=== PATIENT | female | born 1980 | race Caucasian/White ===

== ENCOUNTER 2016-10-10 20:34 | Emergency (ER) | payer MEDICARE, MEDICAID ==
[~2016-10-10] VITALS: Ht 165.1 cm; Wt 65.8 kg
[~2016-10-10 20:34] MED LIST: ALBUTEROL1.25 MG/1 INH; ALLEGRA60 MG PO; CHLORPROMAZINE25 MG PO; CIPRO 500MG TA500 MG PO; CLARITIN10 MG PO; CYANOCOBAL1000 MCG/M IM; CYCLOBENZAPRINE10 MG PO; DEPAKOTE 500MG500 MG PO; DICYCLOMINE20 MG PO; DILAUDID2 MG PO; ESTRADIOL0.5 MG PO; FLUTICASONE 50M16 GM; GABAPENTIN100 M1 PO; IMODIUM2 MG PO; KEFLEX 500MG.500 MG PO; LEVAQUIN500 MG PO; LORATADINE 10MG10 M1 PO; LORTAB 5/500 501 TAB PO; LORTAB 500 MG-71 TAB PO; LYRICA25 M1 PO; NADOLOL 20 MG T20 MG PO; NORCO 325 MG-101 TAB PO; PERCOCET 10 MG1 EACH PO; PERCOCET1 TA1 PO; PRAVASTATIN 20M20 MG PO; PREDNISONE 20MG20 MG PO; PRILOSEC20 MG PO; PROAIR HFA0.09 MG/AC IH; PROMETHAZINE D240 ML PO; PROMETHAZINE HC25 M1 PO; QNASL80 MCG/Act NS; RANITIDINE HCL150 MG PO; SINGULAIR10 MG PO; SYMBICORT1 AE1 IH; TESSALON PERLE100 MG PO; TIZANIDINE4 MG PO; TOPIRAMATE 100100 M1 PO; UROCIT-K 1010 MEQ PO; VERAPAMIL HCL120 M2 PO; ZITHROMAX Z-PA250 M2 PO; ZOFRAN ODT8 MG PO; ZONEGRAN100 MG PO
[2016-10-10] MEDS ORDERED: AMOXICOT500 MG PO (21:15)
[2016-10-10 21:17] VITALS: BP 148/88
--- NOTE | 2016-10-10 21:17 | Urgent Treatment Center Report ---
History of Present Issue Date/Time Seen by Provider 10/10/162110 Visit Reason Pt arrived:Walked Presenting Problem:PT STATES LEFT EAR PAIN FOR PAST WEEK AND A HALF Location if Accident: Onset of symptoms date/time:/ or onset unknown for:MEDICAL HX UNKNOWN Have you (or family members/close friends) recently traveled outside the [place]? N If Yes, where/when: Have you had exposure to infectious disease within the past month? TB? Other? Specify: Source patient Exam Limitations no limitations Comment 36-year-old female presents today for LEFT ear pain. Patient states pain radiates down the neck. Was diagnosed 2 weeks ago with pneumonia. Patient states she also has nasal congestion. ALLERGIES Coded Allergies: No Known Allergies (05/09/16) Home Medications Active Scripts ALBUTEROL SULFATE (Accuneb) 1.25 MG INH QIDP PRN WHEEZING #120 NEB Ref 1 Prov: 05/10/16 Reported Medications Estradiol 0.5 MG PO DAILY TIZANIDINE HCL (Tizanidine) 10 MG PO QID VERAPAMIL HCL (Verapamil ER) 120 MG PO DAILY Beclomethasone Dipropionate (Qnasl) 80 MCG NS BID Pregabalin (Lyrica) 25 MG PO BID Ranitidine Hcl (Ranitidine 150MG) 300 MG PO BID Loratadine (Loratadine 10MG Tablet) 10 MG PO DAILY Montelukast Sodium (Singulair) 10 MG PO QHS PROMETHAZINE HCL (Promethazine 25mg Tab) 25 MG PO Q4HP PRN N/V FLUTICASONE PROPIONATE (Fluticasone 50MCG Nasal [place]) 1 SPRAY NA BID BUDESONIDE/FORMOTEROL FUMARATE (Symbicort 160-4.5 Mcg Inhaler) 2 PUFFS IH BID Albuterol Sulfate (Proair Hfa) 2 PUFFS IH Q6HP PRN ASTHMA VITAMIN B12 (Cyanocobalamin Injection) 1,000 MCG IM MONTHLY Dicyclomine Hcl (Dicyclomine) 20 MG PO TID Pravastatin Sodium (Pravastatin 20MG) 20 MG PO QHS Zonisamide (Zonegran) 300 MG PO BID History Medical History General CAD? No Angina: No OK: No Hypertension? No Hyperlipidemia? Yes CHF? No DVT? No PE? No COPD? No Asthma? Yes Anemia? No GERD? Yes Gastric ulcers? No GI Bleed? No Hernia? No Thyroid Problems? No Hypothyroidism? No CVA? No Seizures? No Diabetes? No Renal Insuffiency? No UTI? Yes Stones? Yes BPH? No GB Disease: Yes Nephritic Syndrome? No Asplenia? No Hepatitis? No Sickle Cell Disease? No Arthritis? Yes Migraines? Yes Cataracts? No Glaucoma? No MRSA? No HIV? No TB? No Anxiety? No Depression? No Cancer? No More? Yes Additional hx: TACHYCARDIA Immunization HX DT/Tetanus > 10 Years Ago Flu 05/10/16 Pneumonia Refuses Surgical Hx Previous Surgery?Y APPENDECTOMY GALLBLADDER Tubal Ligation STENT IN R. 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 Physical Exam Vital Signs Vital Signs Date Time Temp Pulse Resp B/P Pulse O2 O2 Flow FiO2 Ox Delivery Rate 10/10 2041 98.4 114 18 148/88 99 - WBC >12,000 or <4,000 or 10% bands? 2 or more SIRS Criteria Met? B/P:148/88 MAP:108 Creatinine >2.0? UA output<0.5ml/kg/hr for 2 hrs? Platelet count >100,000? Lactate >2.0mmol/1? INR >1.2 or PTT > than 60 sec? Evidence of Organ Dysfunction? Provider documented clinical suspician of infection? Sepsis Criteria Count: 1 Sepsis Risk: General Appearance normal appearance, no apparent distress Eye Exam - bilateral eye normal exam, bilateral eye PERRL, bilateral eye EOMI Ear, Nose, Throat hearing grossly normal, abnormal TM (L) Neck normal inspection, full range of motion Respiratory Status Yes: trachea midline, chest symmetrical, non tender chest. No: respiratory distress. Cardiovascular normal exam, regular rate/rhythm Neurologic alert, normal exam, oriented x 3 Medical Decision Making LABS/Meds/Orders Pt receiving controlled substance in ED? No Departure Departure Time of Disposition 2112 Disposition DC Home or Self Care(routine) Clinical Impression Primary Impression: Otitis media Qualifiers: Otitis media type: unspecified Laterality: left Chronicity: unspecified Qualified Code: H66.92 - Otitis media, unspecified, left ear Condition STABLE Referrals Vani MACEDO,Carlos (Family): 2 Days-Call Office Patient Instructions Ear Infections (Middle Ear) (Alternative Therapy) Additional Instructions Follow-up with PCP on Wednesday return or be seen in the ER with any other concerns Discharge Counseling Counseled pt/family regarding diagnosis, test results, home care, follow up needs Prescriptions Current Visit Scripts Amoxicillin (Amoxicillin 500MG) 500 MG PO BID 10 Days at 2876
== END 2016-10-10 21:19 | disposition home or self-care (01) ==
LOC: UTC 20:34
DX: H66.92 Otitis media, unspecified, left ear (principal)

== ENCOUNTER → 2016-11-11 | Outpatient (CLI) | payer MEDICARE, MEDICAID ==
[~2016-11-11] MED LIST changes: +AMOXICOT500 MG PO
--- NOTE | 2016-11-12 07:35 | RADIOLOGY REPORT PS360 ---
MRI-BRAIN W/O HISTORY: Severe headache increasing in frequency with memory loss MIGRAINE WITHOUT AURA ORDERING PHYSICIAN: JOSE HENRYMATA PATIENT AGE: 36 years COMPARISON: None TECHNIQUE: Standard multiplanar multiecho sequences are performed without contrast. FINDINGS: No midline shift, mass effect, intracranial hemorrhage, hydrocephalus, or acute infarction is evident. There is normal marquez-white matter differentiation. No abnormal white matter signal intensity evident. No intra or extra-axial mass. No evidence of restricted diffusion. No large aneurysms detected. Smaller aneurysms may better be evaluated with MRA if clinically warranted. The cerebellopontine angles, cerebellum, and brainstem are unremarkable. The pituitary and optic chiasm, corpus callosum and hippocampal gyri are unremarkable. The temporal horns are symmetric. No cerebellar tonsillar ectopia. There is a small Thornwaldt cyst at 8 mm. There is a small amount fluid signal intensity in the left mastoid sinus. No paranasal sinus air-fluid level evident. IMPRESSION: 1. Negative MRI of the brain without contrast. 2. Mild left mastoid sinus disease
== END ==
LOC: RAD 14:27
DX: G43.009 Migraine without aura, not intractable, without status migrainosus (principal); G89.29 Other chronic pain; J45.30 Mild persistent asthma, uncomplicated; M54.5 Low back pain; R00.0 Tachycardia, unspecified

== ENCOUNTER → 2017-03-19 | Outpatient (CLI) | payer MEDICARE, MEDICAID ==
[~2017-03-19] MED LIST changes: +AUGMENTIN 875-1 EACH PO; +FLONASE 50 MCG16 GM
[2017-03-19 08:23] LABS: LYMPH # 2.3 K/mm3 (0.7-4.5); LYMPH % 47.1 % (10-50.0)
[2017-03-19 10:53] LABS: BUN 12 mg/dL (7-18); GFR (ESTIMATED) 81 ML/MIN (59-)
== END ==
LOC: LAB 08:05
PROVIDERS: Nurse Practitioner Family
DX: E78.5 Hyperlipidemia, unspecified (principal); Z79.899 Other long term (current) drug therapy

== ENCOUNTER 2017-04-01 18:59 | Emergency (ER) | payer MEDICARE, MEDICAID ==
[~2017-04-01] VITALS: Ht 165.1 cm; Wt 70.3 kg
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
[2017-04-01] MEDS ORDERED: PREDNISONE 20MG20 MG PO (20:42)
[2017-04-01 20:43] VITALS: BP 128/98
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
--- OUTSIDE RECORDS SUMMARY | 2017-04-08 22:40 | External Medical Summary Rpt | CCD ---
Author Author SUN Address Unknown Phone Purpose Continuity of Care Document - 03-19-2017 through 2016
--- OUTSIDE RECORDS SUMMARY | 2017-04-08 22:40 | External Medical Summary Rpt | CCD ---
Author Author , SUN GARSIA Address Unknown Phone [email or web address] Immunization Name Date Rout CVX Reac Dose Comm Prov Is Faci e tion ent ider Refu lity Give sed n Infl 08-2 Intr 0.5 Hist PD20 No PD20 uenz 8-20 amus mL oric 255 255 a 17 cula al Quad r Info rmat W/Pr ion es - Sour ce Unsp ecif ied
--- OUTSIDE RECORDS SUMMARY | 2017-04-08 22:40 | External Medical Summary Rpt ---
Author Author [employer], [employer] Organization [employer] Address Unknown Phone Unavailable Results Cobalamin (Vitamin B12) [Mass/volume] in Serum Observa Value Referen Units Interpr Notes Date tion ce etation Range Cobalamin 211 - 946 pg/mL No Performed Sep 22 (Vitamin informati at: CB 2017 8:06 B12) on in - [facility] AM [Mass/vol source ume] in data [address] [address] Serum 0 [place], [place] [id number] [employer] Sales Executive: Chato Cortes PhD, Phone: [phone] Comprehensive metabolic 2000 panel in Serum or Plasma Observa Value Referen Units Interpr Notes Date tion ce etation Range Albumin/G 1.1 - 1.8 No Low No Sep 22 lobulin informati informati 2017 8:06 [Mass on in on in AM ratio] in source source Serum or data data Plasma Albumin 3.4 - 5.0 gm/dL Normal No Sep 22 [Mass/vol informati 2017 8:06 ume] in on in AM Serum or source Plasma data Alkaline 46 - 116 U/L Normal No Sep 22 phosphata informati 2017 8:06 se on in AM [Enzymati source c data activity/ volume] in Serum or Plasma Bilirubin 0.2 - 1.0 mg/dL Normal No Sep 22 .total informati 2017 8:06 [Mass/vol on in AM ume] in source Serum or data Plasma Urea 7 - 18 mg/dL Normal No Sep 22 nitrogen informati 2017 8:06 [Mass/vol on in AM ume] in source Serum or data Plasma Calcium 8.5 - mg/dL Normal No Sep 22 [Mass/vol 10.1 informati 2017 8:06 ume] in on in AM Serum or source Plasma data Chloride 98 - 107 mmoL/L Normal No Sep 22 [Moles/vo informati 2017 8:06 lume] in on in AM Serum or source Plasma data Carbon 21.0 - mmoL/L Normal No Sep 22 dioxide, 32.0 informati 2017 8:06 total on in AM [Moles/vo source lume] in data Serum or Plasma Creatinin 0.55 - mg/dL Normal No Sep 22 e 1.02 informati 2016 8:06 [Mass/vol on in AM ume] in source Serum or data Plasma Estimated 59- ML/MIN No REFERENCE Sep 22 informati RANGE: 2016 8:06 glomerula on in >60 AM r source ML/MIN/1. filtratio data 73 SQUARE n rate METERSIf (GF this patient is -A merican, then multiply theresult by 1.210. Globulin 1.3 - 3.2 gm/dL High No Sep 22 [Mass/vol informati 2017 8:06 ume] in on in AM Serum source data Glucose 74 - 106 mg/dL Normal No Sep 22 [Mass/vol informati 2017 8:06 ume] in on in AM Serum or source Plasma data Potassium 3.5 - 5.1 mmoL/L Normal No Sep 22 informati 2016 8:06 [Moles/vo on in AM lume] in source Serum or data Plasma Sodium 136 - 145 mmoL/L Normal No Sep 22 [Moles/vo informati 2017 8:06 lume] in on in AM Serum or source Plasma data Aspartate 15 - 37 U/L Low No Sep 22 informati 2016 8:06 aminotran on in AM sferase source [Enzymati data c activity/ volume] in Serum or Plasma Alanine 12 - 78 U/L Normal No Sep 22 aminotran informati 2016 8:06 sferase on in AM [Enzymati source c data activity/ volume] in Serum or Plasma Protein 6.4 - 8.2 gm/dL Normal No Sep 22 [Mass/vol informati 2017 8:06 ume] in on in AM Serum or source Plasma data Lipid 1996 panel in Serum or Plasma Observa Value Referen Units Interpr Notes Date tion ce etation Range Cholester < 200 mg/dL No No Sep 22 ol informati informati 2017 8:06 [Moles/vo on in on in AM lume] in source source Unspecifi data data ed specimen Cholester 40 - 60 MG/DL Normal No Sep 22 ol in HDL informati 2017 8:06 on in AM [Mass/vol source ume] in data Serum or Plasma Cholester 0 - 130 mg/dL Normal No Sep 22 ol in LDL informati 2016 8:06 on in AM [Mass/vol source ume] in data Serum or Plasma by calculati on Triglycer 30 - 200 mg/dL Normal No Sep 22 mu informati 2016 8:06 [Moles/vo on in AM lume] in source Serum or data Plasma Cholester 0 - 40 No Normal No Sep 22 ol in informati informati 2016 8:06 VLDL on in on in AM [Mass/vol source source ume] in data data Serum or Plasma Thyrotropin [Units/volume] in Serum or Plasma Observa Value Referen Units Interpr Notes Date tion ce etation Range Thyrotrop 0.358 - uIU/ml No No Sep 22 in 3.740 informati informati 2016 8:06 [Units/vo on in on in AM lume] in source source Serum or data data Plasma CBC W Auto Differential panel in Blood Observa Value Referen Units Interpr Notes Date tion ce etation Range Basophils 0 - 0.2 K/MM3 Normal No Sep 22 informati 2017 8:06 [#/volume on in AM ] in source Blood by data Automated count Basophils 0.1 - 2.0 % Normal No Sep 22 /100 informati 2017 8:06 leukocyte on in AM s in source Blood by data Automated count Eosinophi 0.0 - 0.4 K/mm3 Normal No Sep 22 ls informati 2016 8:06 [#/volume on in AM ] in source Blood by data Automated count Eosinophi 0.1 - % Normal No Sep 22 ls/100 12.0 informati 2016 8:06 leukocyte on in AM s in source Blood by data Automated count Granulocy 1.8 - 7.8 K/mm3 Normal No Sep 22 mahendra informati 2016 8:06 [#/volume on in AM ] in source Blood by data Automated count Granulocy 37.0 - % Normal No Sep 22 mahendra/100 80.0 informati 2016 8:06 leukocyte on in AM s in source Blood by data Automated count Hematocri 37.0 - % Normal No Sep 22 t [Volume 47.0 informati 2016 8:06 on in AM Fraction] source of Blood data Hemoglobi 12.2 - g/dL No No Sep 22 n 16.2 informati informati 2016 8:06 [Mass/vol on in on in AM ume] in source source Blood data data Lymphocyt 0.7 - 4.5 K/mm3 Normal No Sep 22 es informati 2017 8:06 [#/volume on in AM ] in source Unspecifi data ed specimen by Automated count Lymphocyt 10 - 50.0 % Normal No Sep 22 es informati 2017 8:06 [#/volume on in AM ] in source Unspecifi data ed specimen by Automated count Erythrocy 27 - 31.2 pg High No Sep 22 te mean informati 2017 8:06 corpuscul on in AM ar source hemoglobi data n [Entitic mass] Erythrocy 31.8 - g/dl Normal No Sep 22 te mean 35.4 informati 2017 8:06 corpuscul on in AM ar source hemoglobi data n concentra tion [Mass/vol ume] by Automated count Erythrocy 82.2 - fl High No Sep 22 te mean 97.8 informati 2017 8:06 corpuscul on in AM ar volume source [Entitic data volume] by Automated count Monocytes 0.1 - 1.0 K/mm3 Normal No Sep 22 informati 2017 8:06 [#/volume on in AM ] in source Blood by data Automated count Monocytes 1.7 - 9.3 % Normal No Sep 22 /100 informati 2017 8:06 leukocyte on in AM s in source Blood by data Automated count Platelet 7.4 - fl Normal No Sep 22 mean 10.4 informati 2017 8:06 volume on in AM [Entitic source volume] data in Blood by Automated count Platelets 142 - 424 K/mm3 Normal No Sep 22 informati 2017 8:06 [#/volume on in AM ] in source Blood data Erythrocy 4.2 - 5.4 M/mm3 Low No Sep 22 mahendra informati 2017 8:06 [#/volume on in AM ] in source Amniotic data fluid Erythrocy 11.5 - % Normal No Sep 22 te 17.5 informati 2017 8:06 distribut on in AM ion width source [Entitic data volume] by Automated count Leukocyte 4.8 - K/MM3 Normal No Sep 22 s 10.8 informati 2017 8:06 [#/volume on in AM ] in source Blood data
--- OUTSIDE RECORDS SUMMARY | 2017-04-08 22:40 | External Medical Summary Rpt | CCD ---
Author Author , SUN GARSIA Address Unknown Phone [email or web address] Immunization Name Date Rout CVX Reac Dose Comm Prov Is Faci e tion ent ider Refu lity Give sed n Infl 08-2 Intr 0.5 Hist PD20 No PD20 uenz 8-20 amus mL oric 255 255 a 17 cula al Quad r Info rmat W/Pr ion es - Sour ce Unsp ecif ied
--- OUTSIDE RECORDS SUMMARY | 2017-04-08 22:40 | External Medical Summary Rpt | CCD ---
Author Author SUN Address Unknown Phone [email or web address]; to ([email or web address]) [email or web address] Purpose Continuity of Care Document - 03-19-2017 through 2016
--- OUTSIDE RECORDS SUMMARY | 2017-04-08 22:40 | External Medical Summary Rpt ---
[...] [facility] AM [Mass/vol source ume] in data [address] [address] [address] [place], [place] [id number] [employer] Worker: Chato Cortes PhD, Phone: [phone] Comprehensive metabolic 2000 panel in Serum [...]
== END 2017-04-01 20:43 | disposition home or self-care (01) ==
LOC: UTC 18:59
DX: M25.512 Pain in left shoulder (principal); M54.2 Cervicalgia; W01.198A Fall on same level from slipping, tripping and stumbling with subsequent striking against other object, initial encounter; Y92.019 Unspecified place in single-family (private) house as the place of occurrence of the external cause; J45.909 Unspecified asthma, uncomplicated; K21.9 Gastro-esophageal reflux disease without esophagitis; E78.5 Hyperlipidemia, unspecified

== ENCOUNTER 2017-06-06 15:27 | Emergency (ER) | payer MEDICARE, MEDICAID ==
[~2017-06-06] VITALS: Ht 165.1 cm; Wt 73.5 kg
--- OUTSIDE RECORDS SUMMARY | 2017-06-06 15:37 | External Medical Summary Rpt | CCD ---
Author Author , GOMEZ GARSIA Address Unknown Phone [email or web address] Purpose Continuity of Care Document - through 2016
--- OUTSIDE RECORDS SUMMARY | 2017-06-06 15:37 | External Medical Summary Rpt | CCD ---
Author Author , GOMEZ GARSIA Address Unknown Phone [email or web address] Purpose Continuity of Care Document - through 2016
--- OUTSIDE RECORDS SUMMARY | 2017-06-06 15:37 | External Medical Summary Rpt | CCD ---
Author Author , SUN GARSIA Address Unknown Phone [email or web address] Immunization Name Date Rout CVX Reac Dose Comm Prov Is Faci e tion ent ider Refu lity Give sed n Infl 08-2 Intr 0.5 Hist PD20 No PD20 uenz 8-20 amus mL oric 255 255 a 17 cula al Quad r Info rmat W/Pr ion es - Sour ce Unsp ecif ied
--- OUTSIDE RECORDS SUMMARY | 2017-06-06 15:37 | External Medical Summary Rpt | CCD ---
Author Author , SUN GARSIA Address Unknown Phone [email or web address] Immunization Name Date Rout CVX Reac Dose Comm Prov Is Faci e tion ent ider Refu lity Give sed n Infl 08-2 Intr 0.5 Hist PD20 No PD20 uenz 8-20 amus mL oric 255 255 a 17 cula al Quad r Info rmat W/Pr ion es - Sour ce Unsp ecif ied
--- NOTE | 2017-06-06 15:51 | Urgent Treatment Center Report ---
See Addendum History of Present Issue Date/Time Seen by Provider 06/06/17 5456 Visit Reason Pt arrived:Walked Presenting Problem:PT STATES SHE SNEEZED A COUPLE DAYS AGO AND IS NOW HAVING NECK AND SHOULDER PAIN. PT STATES SHE HAS CHRONIC LOWER BACK PAIN WELL. Location if Accident: Onset of symptoms date/time:/ or onset unknown for:MEDICAL HX UNKNOWN Have you (or family members/close friends) recently traveled outside the [place]? N If Yes, where/when: Have you had exposure to infectious disease within the past month? TB? Other? Specify: Patient state that she was at home a couple days ago and "took a sneezing fit" state that she sneezed 2-3 times and felt like she may have pulled something in her upper back/neck area State that now the muscles in her upper back feel tight State that she took her prescribed medication this morning for pain but it has not helped State that she feels like her neck and shoulder muscles are getting more tight and it feels like it is pulling when she tries to turn her head State that she was not sure if there is something we could give to help with the muscle spasms ALLERGIES Coded Allergies: No Known Allergies (05/09/16) Home Medications Active Scripts ALBUTEROL SULFATE (Accuneb) 1.25 MG INH QIDP PRN WHEEZING #120 NEB Ref 1 Prov: 05/10/16 Fluticasone Propionate (Flonase 50 Mcg Nasal [place]) 2 SPRAY NA DAILY #1 BOT Prov: 01/07/17 Prednisone (Prednisone 20MG) 20 MG PO BID #10 TAB Prov: 04/01/17 Reported Medications TIZANIDINE HCL (Tizanidine) 10 MG PO QID VERAPAMIL HCL (Verapamil ER) 120 MG PO DAILY Beclomethasone Dipropionate (Qnasl) 80 MCG NS BID Pregabalin (Lyrica) 25 MG PO BID Ranitidine Hcl (Ranitidine 150MG) 300 MG PO BID Loratadine (Loratadine 10MG Tablet) 10 MG PO DAILY Montelukast Sodium (Singulair) 10 MG PO QHS PROMETHAZINE HCL (Promethazine 25mg Tab) 25 MG PO Q4HP PRN N/V FLUTICASONE PROPIONATE (Fluticasone 50MCG Nasal [place]) 1 SPRAY NA BID BUDESONIDE/FORMOTEROL FUMARATE (Symbicort 160-4.5 Mcg Inhaler) 2 PUFFS IH BID Albuterol Sulfate (Proair Hfa) 2 PUFFS IH Q6HP PRN ASTHMA VITAMIN B12 (Cyanocobalamin Injection) 1,000 MCG IM MONTHLY Dicyclomine Hcl (Dicyclomine) 20 MG PO TID Pravastatin Sodium (Pravastatin 20MG) 20 MG PO QHS Estradiol 2 MG PO DAILY History Medical History General CAD? No Angina: No IN: No Hypertension? No Hyperlipidemia? Yes CHF? No DVT? No PE? No COPD? No Asthma? Yes Anemia? No GERD? Yes Gastric ulcers? No GI Bleed? No Hernia? No Thyroid Problems? No Hypothyroidism? No CVA? No Seizures? No Diabetes? No Renal Insuffiency? No UTI? Yes Stones? Yes BPH? No GB Disease: Yes Nephritic Syndrome? No Asplenia? No Hepatitis? No Sickle Cell Disease? No Arthritis? Yes Migraines? Yes Cataracts? No Glaucoma? No MRSA? No HIV? No TB? No Anxiety? No Depression? No Cancer? No More? Yes Additional hx: TACHYCARDIA Immunization HX DT/Tetanus > 10 Years Ago Flu 05/10/16 Pneumonia Refuses Surgical Hx Previous Surgery?Y APPENDECTOMY GALLBLADDER Tubal Ligation STENT IN R. URETER X3 URINARY STENT REMOVED D&C WITH POLYPS CONE BX Hysterect L5-S1 FUSION DISCETOMY Family History Family HX Diabetes Yes CAD Yes Hypertension Yes Hyperlipidemia Yes Cancer No TB No Social History Smoking Hx Smoker: Never Smoker Tobacco: No Packs/day N/A Alcohol Alcohol: No Review of Systems All Other Systems Reviewed and Negative ENT nose congestion. Musculoskeletal back pain, muscle pain, muscle stiffness Physical Exam Vital Signs Vital Signs Date Time Temp Pulse Resp B/P Pulse O2 O2 Flow FiO2 Ox Delivery Rate 06/06 1608 18 06/06 1537 129 20 156/100 96 General Appearance normal appearance, WD/WN, no apparent distress Ear, Nose, Throat normal ENT inspection Respiratory Status Yes: trachea midline, chest symmetrical, non tender chest. No: respiratory distress. Lung Sounds bilateral: normal breath sounds, lungs clear. Cardiovascular normal exam, regular rate/rhythm, no peripheral edema Back normal inspection, no CVA tenderness, no vertebral tenderness, bowel/ bladder continent, gait normal, muscle spasm, Muscle spasm felt right upper shoulder area that radiated into neck and back state that pain started after she sneezed and felt like something pulled in her back Neurologic alert, normal exam, oriented x 3 Medical Decision Making LABS/Meds/Orders Pt receiving controlled substance in ED? No Results/Orders Laboratory Tests 06/06/17 1638: Influenza Type A Ag DETECTED H, Influenza Type B Ag NOT DETECTED Current Medication Orders Sig/Manny Start time Last Medication Dose Route Stop Time Status Admin Orphenadrine Citrate 0 .STK-MED ONE 06/06 1605 DC .ROUTE Ketorolac 0 .STK-MED ONE 06/06 1604 DC Tromethamine .ROUTE Ketorolac 60 MG ONCE ONE 06/06 1600 DC 06/06 Tromethamine IM 06/06 1601 1608 Orphenadrine Citrate 60 MG ONCE ONE 06/06 1600 DC 06/06 IM 06/06 1601 1609 Orders Procedure Date/time Status [facility] FLU A,B 06/06 1638 Complete Progress [facility] Progress Notes Comment After initial work up for muscle pain patient began complaining of flu like symptoms flu and strep screen done and patient flu positive Departure Departure Time of Disposition 1641 Disposition DC Home or Self Care(routine) Clinical Impression Primary Impression: Influenza Condition STABLE Referrals Carlos Ludwig MD (Family): 2 Days-Call Office If no improvement in back pain Patient Instructions DI for Muscle Spasm, Influenza, Low Back Pain Additional Instructions Take medication as prescribed Follow up with family doctor Make sure to Lysol and clean everything to help from spreading flu virus to family members Return if needed Over the counter Motrin / or tylenol as needed for fever or pain Discharge Counseling Counseled pt/family regarding diagnosis, test results, medications/RX, home care, follow up needs Prescriptions Current Visit Scripts Oseltamivir Phosphate (Tamiflu 75MG Capsule) 75 MG PO BID #10 CAP at 1641
[2017-06-06] MEDS ORDERED: TAMIFLU 75MG CA75 MG PO (16:45)
[2017-06-06 16:50] VITALS: BP 148/97
[2017-06-24] MEDS ORDERED: FLECTOR1 EACH TD (21:14)
[2017-06-24] MEDS ORDERED: IBU800 MG PO (23:16)
[2017-06-24] MEDS ORDERED: ZOFRAN4 MG PO (23:16)
== END 2017-06-06 16:54 | disposition home or self-care (01) ==
LOC: UTC 15:27
DX: J11.1 Influenza due to unidentified influenza virus with other respiratory manifestations (principal); E78.5 Hyperlipidemia, unspecified; Z79.51 Long term (current) use of inhaled steroids; Z79.899 Other long term (current) drug therapy

== ENCOUNTER → 2017-06-14 | Outpatient (CLI) | payer MEDICARE, MEDICAID ==
[~2017-06-14] MED LIST changes: +FLECTOR1 EACH TD; +IBU800 MG PO; +TAMIFLU 75MG CA75 MG PO; +ZOFRAN4 MG PO
--- NOTE | 2017-06-14 18:32 | RADIOLOGY REPORT PS360 ---
CHEST(2 VIEWS-NOT PORTABLE) INDICATION: Cough COMPARISON: The a and lateral chest 10/02/2016 FINDINGS: The lung vergara are well expanded and appear clear of infiltrate. The cardiomediastinal silhouette and vascularity are normal. The costophrenic angles are clear. The bony thorax is normal. IMPRESSION: Normal chest.
== END ==
LOC: RAD 12:18
DX: R05 Cough (principal)